=== PATIENT | female | born 1935 | race Caucasian/White ===

== ENCOUNTER 2019-02-27 11:01 | Inpatient (IN) ==
[2019-02-27] MEDS ORDERED: ONDANSETRON 4 MG/2 ML VIAL IV ONE (11:31)
[2019-02-27] MEDS ORDERED: MORPHINE 4 MG/1 ML VIAL IV ONE (11:31)
[2019-02-27] MEDS ORDERED: SODIUM CHLORIDE 0.9% 500 ML IV STA (11:36)
[2019-02-27 11:37] LABS: Basophils % 0.4 % (0.0-0.8); Eosinophils # 0.1 10*3/uL (0.0-0.87); Eosinophils % 0.5 % (0.00-10.9); Hematocrit 33.7 VOL% (35.7-47.0); Hemoglobin 10.7 GM/DL (12.0-16.0); Immature Granulocytes % 0.4 %; Immature Granulocytes Absolute 0.04 #; Lymphocytes # 1.5 10*3/uL (1.4-4.0); Mean Corpuscular HGB Conc 31.8 GM/DL (32-36); Mean Corpuscular Volume 96.3 FL (87-102); Mean Platelet Volume 10.5 FL (9.6-12.0); Monocytes % 5.8 % (1.7-12.7); Neutrophils % 76.9 % (38.7-73.9); Platelet Count 260 T/CUMM (130-400); Red Cell Distribution Width 12.8 % (9.3-17.3); White Blood Count 9.1 T/CUMM (4-12)
[2019-02-27 11:43] LABS: INR 0.9
[2019-02-27 11:47] LABS: Albumin 3.9 G/DL (3.4-5.0); Bilirubin,Total 0.4 MG/DL (0.2-1.0); Osmolality,Calculated 287.5 MOS/KG (273-304); Total Protein 6.6 G/DL (6.4-8.3)
[2019-02-27 11:51] LABS: Troponin I < 0.015 NG/ML (0.00-0.045)
[2019-02-27] MEDS ORDERED: ONDANSETRON 4 MG/2 ML VIAL IV PRN (13:50)
[2019-02-27] MEDS ORDERED: oxyCODONE IR 5 MG TABLET PO PRN (13:55)
[2019-02-27] MEDS: SODIUM CHLORIDE 0.9% 1,000 ML IV SCH (14:03)
[2019-02-27] MEDS: MORPHINE 4 MG/1 ML VIAL IV PRN (16:19)
[2019-02-27] MEDS: DONEPEZIL 10 MG TABLET PO SCH (20:28)
[2019-02-27] MEDS: ARIPiprazole 5 MG TABLET PO SCH (20:28)
[2019-02-27] MEDS: ASPIRIN EC 81 MG TABLET PO SCH (20:28)
[2019-02-27] MEDS: MEMANTINE 5 MG TABLET PO SCH (20:28)
[2019-02-28] MEDS: SODIUM CHLORIDE 0.9% 1,000 ML IV SCH ×4 (01:03→21:55)
[2019-02-28] MEDS: MORPHINE 4 MG/1 ML VIAL IV PRN ×2 (04:53→09:23)
[2019-02-28 05:35] LABS: Basophils % 0.3 % (0.0-0.8); Eosinophils % 0.1 % (0.00-10.9); Hematocrit 24.2 VOL% (35.7-47.0); Hemoglobin 7.6 GM/DL (12.0-16.0); Immature Granulocytes % 0.5 %; Immature Granulocytes Absolute 0.04 #; Lymphocytes # 0.8 10*3/uL (1.4-4.0); Lymphocytes % 10.6 % (21.3-54.2); Mean Corpuscular HGB Conc 31.4 GM/DL (32-36); Mean Corpuscular Volume 97.2 FL (87-102); Mean Platelet Volume 10.2 FL (9.6-12.0); Monocytes % 8.7 % (1.7-12.7); Neutrophils % 79.8 % (38.7-73.9); Platelet Count 169 T/CUMM (130-400); Red Blood Count 2.49 MC/CUMM (3.8-5.5); Red Cell Distribution Width 12.7 % (9.3-17.3); White Blood Count 7.5 T/CUMM (4-12)
[2019-02-28] MEDS: LEVOTHYROXINE 50 MCG TABLET PO SCH (05:51)
[2019-02-28 06:09] LABS: Calcium 8.1 MG/DL (8.5-10.1); Osmolality,Calculated 288.3 MOS/KG (273-304); Risk Ratio 2.32; Thyroid Stimulating Hormone 4.77 uIU/ml (0.358-3.74)
[2019-02-28] MEDS ORDERED: SODIUM CHLORIDE 0.9% 1,000 ML IV PRN (07:48)
[2019-02-28] MEDS: ceFAZolin 1,000 MG in SYRINGE 1 EACH IV ONE ×2 (10:15→13:56)
[2019-02-28] MEDS: SIMVASTATIN 20 MG TABLET PO SCH (10:26)
[2019-02-28] MEDS: DULoxetine 30 MG CAPSULE PO SCH (10:26)
[2019-02-28] MEDS ORDERED: BUPIVACAINE SPINAL 0.75% 2 ML AMP SPINAL ONE (10:52)
[2019-02-28] MEDS ORDERED: PHENYLEPHRINE DRIP 20 MG/250 ML PREMIX IV ONE (10:52)
[2019-02-28] MEDS ORDERED: ceFAZolin 1,000 MG VIAL ONE (11:39)
[2019-02-28] MEDS ORDERED: BISACODYL 10 MG SUPP RECTAL PRN (12:15)
[2019-02-28] MEDS ORDERED: MAGNESIUM HYDROXIDE SUSP 30 ML UDCUP PO PRN (12:15)
[2019-02-28] MEDS ORDERED: LACTULOSE 20 GM/30 ML UDCUP PO PRN (12:15)
[2019-02-28] MEDS ORDERED: diphenhydrAMINE CAP 25 MG CAPSULE PO PRN (12:15)
[2019-02-28] MEDS ORDERED: MORPHINE 4 MG/1 ML VIAL IV PRN (12:18)
[2019-02-28] MEDS ORDERED: MIDAZOLAM 2 MG/2 ML VIAL ONE (12:32)
[2019-02-28] MEDS ORDERED: KETAMINE 500 MG/10 ML VIAL ONE (12:32)
[2019-02-28 13:05] LABS: Apearance,Urine CLEAR (Clear); Bacteria,Urine Occasional /HPF (Few); Bilirubin,Urine Negative (Negative); Blood, Urine Negative (Negative); Glucose,Urine (UA) Negative (Negative); Hyaline Casts,Urine 4 /LPF (0-3); Ketones,Urine Negative (Negative); Mucus,Urine Occasional /LPF (Occasional); Nitrite,Urine Negative (Negative); Protein,Urine Negative; RBC,Urine 1 /HPF (0-4); Squamous Epithelial Cell,Urine Occasional /HPF (0-10); Urine Color Yellow (Yellow); Urine Specific Gravity 1.013 (1.001-1.035); Urine Urobilinogen < 2.0 EU/DL (0.2-1.0); WBC,Urine <1 /HPF (0-6)
[2019-02-28 14:22] LABS: Hematocrit 35.6 VOL% (35.7-47.0); Hemoglobin 10.9 GM/DL (12.0-16.0)
[2019-02-28] MEDS ORDERED: LORazepam 2 MG/1 ML VIAL IV ONE (16:06)
[2019-02-28] MEDS: ceFAZolin 1,000 MG in SYRINGE 1 EACH IV SCH (18:28)
[2019-02-28] MEDS: ARIPiprazole 5 MG TABLET PO SCH (23:22)
[2019-02-28] MEDS: ASPIRIN EC 81 MG TABLET PO SCH (23:22)
[2019-02-28] MEDS: DONEPEZIL 10 MG TABLET PO SCH (23:22)
[2019-02-28] MEDS: FAMOTIDINE 20 MG TABLET PO SCH (23:23)
[2019-02-28] MEDS: MEMANTINE 5 MG TABLET PO SCH (23:23)
[2019-02-28] MEDS: METOPROLOL SUCCINATE XL 25 MG TABLET PO SCH (23:23)
[2019-03-01] MEDS: ceFAZolin 1,000 MG in SYRINGE 1 EACH IV SCH ×2 (01:24→10:34)
[2019-03-01] MEDS: FONDAPARINUX 2.5 MG/0.5 ML SYRINGE SUBCUT SCH (05:36)
[2019-03-01] MEDS: LEVOTHYROXINE 50 MCG TABLET PO SCH ×2 (05:37→06:32)
[2019-03-01 05:57] LABS: Basophils % 0.2 % (0.0-0.8); Eosinophils % 0.3 % (0.00-10.9); Hematocrit 26.9 VOL% (35.7-47.0); Hemoglobin 8.8 GM/DL (12.0-16.0); Immature Granulocytes % 0.6 %; Immature Granulocytes Absolute 0.04 #; Lymphocytes # 0.7 10*3/uL (1.4-4.0); Lymphocytes % 10.4 % (21.3-54.2); Mean Corpuscular HGB Conc 32.7 GM/DL (32-36); Mean Corpuscular Volume 92.1 FL (87-102); Mean Platelet Volume 11.1 FL (9.6-12.0); Monocytes % 9.5 % (1.7-12.7); Platelet Count 132 T/CUMM (130-400); Red Blood Count 2.92 MC/CUMM (3.8-5.5); Red Cell Distribution Width 14.4 % (9.3-17.3); White Blood Count 6.5 T/CUMM (4-12)
[2019-03-01] MEDS: SODIUM CHLORIDE 0.9% 1,000 ML IV SCH (06:30)
[2019-03-01 06:35] LABS: Calcium 7.5 MG/DL (8.5-10.1)
[2019-03-01] MEDS: FAMOTIDINE 20 MG TABLET PO SCH ×2 (08:46→20:56)
[2019-03-01] MEDS: SIMVASTATIN 20 MG TABLET PO SCH (08:46)
[2019-03-01] MEDS: MELOXICAM 7.5 MG TABLET PO SCH (08:49)
[2019-03-01] MEDS: IRON (CARBONYL) 45 MG TABLET PO SCH (08:49)
[2019-03-01] MEDS: DULoxetine 30 MG CAPSULE PO SCH (08:50)
[2019-03-01] MEDS: METOPROLOL SUCCINATE XL 25 MG TABLET PO SCH (08:50)
[2019-03-01] MEDS: FUROSEMIDE 20 MG TABLET PO SCH (08:51)
[2019-03-01] MEDS: POTASSIUM CHLORIDE 20 MEQ TABLET PO SCH (08:51)
[2019-03-01] MEDS: LISINOPRIL 5 MG TABLET PO SCH (08:53)
[2019-03-01] MEDS ORDERED: TUBERCULIN SKIN TEST 0.1 ML SYRINGE INTRADERM ONE (09:22)
[2019-03-01] MEDS: ASPIRIN EC 81 MG TABLET PO SCH (20:55)
[2019-03-01] MEDS: MEMANTINE 5 MG TABLET PO SCH (20:55)
[2019-03-01] MEDS: DONEPEZIL 10 MG TABLET PO SCH (20:56)
[2019-03-01] MEDS: ARIPiprazole 5 MG TABLET PO SCH (20:56)
[2019-03-02] MEDS: METOPROLOL SUCCINATE XL 25 MG TABLET PO SCH ×2 (00:29→09:13)
[2019-03-02 05:24] LABS: Basophils % 0.3 % (0.0-0.8); Eosinophils # 0.1 10*3/uL (0.0-0.87); Eosinophils % 0.9 % (0.00-10.9); Hemoglobin 8.5 GM/DL (12.0-16.0); Immature Granulocytes % 0.3 %; Immature Granulocytes Absolute 0.02 #; Lymphocytes # 0.7 10*3/uL (1.4-4.0); Lymphocytes % 9.7 % (21.3-54.2); Mean Corpuscular HGB Conc 32.7 GM/DL (32-36); Mean Corpuscular Volume 93.5 FL (87-102); Mean Platelet Volume 10.7 FL (9.6-12.0); Monocytes % 8.6 % (1.7-12.7); Neutrophils % 80.2 % (38.7-73.9); Platelet Count 130 T/CUMM (130-400); Red Blood Count 2.78 MC/CUMM (3.8-5.5); Red Cell Distribution Width 13.3 % (9.3-17.3)
[2019-03-02] MEDS: LEVOTHYROXINE 50 MCG TABLET PO SCH (05:43)
[2019-03-02] MEDS: FONDAPARINUX 2.5 MG/0.5 ML SYRINGE SUBCUT SCH (05:45)
[2019-03-02 05:46] LABS: Calcium 8.2 MG/DL (8.5-10.1); Osmolality,Calculated 279.5 MOS/KG (273-304)
[2019-03-02] MEDS: MELOXICAM 7.5 MG TABLET PO SCH (09:12)
[2019-03-02] MEDS: FAMOTIDINE 20 MG TABLET PO SCH (09:13)
[2019-03-02] MEDS: DULoxetine 30 MG CAPSULE PO SCH (09:13)
[2019-03-02] MEDS: FUROSEMIDE 20 MG TABLET PO SCH (09:13)
[2019-03-02] MEDS: LISINOPRIL 5 MG TABLET PO SCH (09:13)
[2019-03-02] MEDS: SIMVASTATIN 20 MG TABLET PO SCH (09:13)
[2019-03-02] MEDS: POTASSIUM CHLORIDE 20 MEQ TABLET PO SCH (09:14)
[2019-03-02] MEDS: IRON (CARBONYL) 45 MG TABLET PO SCH (09:14)
[2019-03-02 11:18] VITALS: BP 108/66
== END 2019-03-02 12:50 | disposition swing bed (61) | DRG 481 ==
LOC: EDUNIT# → EDBD → N.ED 11:01 → N.EDINP 13:47 → SUATTDRO 13:47 → N.EDINP 14:53 → N.3E 15:05
PROVIDERS: ADMIT Internal Medicine; ATTEND Internal Medicine Cardiovascular Disease